=== PATIENT | female | born 1935 | race Caucasian/White ===

== ENCOUNTER → 2016-08-15 | Outpatient (CLI) | payer BC ==
[2016-08-15 13:23] LABS: BLOOD UREA NITROGEN 29 mg/dl (7-18); CALCIUM 9.1 mg/dl (8.5-10.1); CARBON DIOXIDE 25 mmol/L (21-32); CHLORIDE 106 mmol/L (98-107); GLUCOSE 135 mg/dl (70-99); POTASSIUM 4.2 mmol/L (3.5-5.1); SODIUM 140 mmol/L (136-145)
[2016-08-15 13:25] LABS: PHOSPHORUS 3.3 mg/dl (2.5-4.9)
[2016-08-15 13:37] LABS: ESTIMATED AVERAGE GLUCOSE 137 mg/dl; HA1C FLAG Normal (Normal)
== END | disposition home or self-care (01) ==
LOC: C.LABMFLN 10:10
PROVIDERS: ATTEND Family Medicine
DX: E11.9 Type 2 diabetes mellitus without complications (principal)

== ENCOUNTER → 2016-11-17 | Outpatient (CLI) | payer BC ==
[2016-11-17 13:38] LABS: ESTIMATED AVERAGE GLUCOSE 146 mg/dl; HA1C FLAG Normal (Normal)
[2016-11-17 14:03] LABS: BLOOD UREA NITROGEN 23 mg/dl (7-18); BUN/CREATININE RATIO 20.7 (10-20); CARBON DIOXIDE 30 mmol/L (21-32); CHLORIDE 105 mmol/L (98-107); GLUCOSE 147 mg/dl (70-99); POTASSIUM 4.6 mmol/L (3.5-5.1); SODIUM 141 mmol/L (136-145)
[2016-11-17 14:04] LABS: CALCIUM 9.3 mg/dl (8.5-10.1); PHOSPHORUS 3.1 mg/dl (2.5-4.9)
== END | disposition home or self-care (01) ==
LOC: C.LABMFLN 09:04
PROVIDERS: ATTEND Family Medicine
DX: E11.9 Type 2 diabetes mellitus without complications (principal)

== ENCOUNTER → 2017-02-25 | Outpatient (CLI) | payer BC ==
[2017-02-25 17:59] LABS: BLOOD UREA NITROGEN 17 mg/dl (7-18); BUN/CREATININE RATIO 14.2 (10-20); CALCIUM 8.9 mg/dl (8.5-10.1); CARBON DIOXIDE 29 mmol/L (21-32); CHLORIDE 107 mmol/L (98-107); GLUCOSE 113 mg/dl (70-99); PHOSPHORUS 2.6 mg/dl (2.5-4.9); POTASSIUM 4.6 mmol/L (3.5-5.1); SODIUM 140 mmol/L (136-145)
[2017-02-25 18:00] LABS: BASO % 0.4 %; BASO ABS # 0.02 K/uL (0-0.2); COMPLETE YES; HEMATOCRIT 34.2 % (37-47); IG% 0.2 %; LYMPH % 33.5 %; LYMPH ABS # 1.74 K/uL (1.2-3.4); MEAN CELL VOLUME 96.6 fL (80-100); MEAN CORPUSCULAR HEMOGLOBIN 33.1 pg (25-34); MEAN CORPUSCULAR HGB CONC 34.2 g/dl (32-36); MEAN PLATELET VOLUME 8.8 fL (7.4-10.4); NEUT % 50.9 %; PLATELET COUNT 242 K/uL (130-400); RED BLOOD COUNT 3.54 M/uL (4.2-5.4); WHITE BLOOD COUNT 5.19 K/uL (4.8-10.8)
[2017-02-26 06:46] LABS: ESTIMATED AVERAGE GLUCOSE 143 mg/dl; HA1C FLAG Normal (Normal)
== END | disposition home or self-care (01) ==
LOC: C.LABMFLN 14:28
PROVIDERS: ATTEND Family Medicine
DX: E11.9 Type 2 diabetes mellitus without complications (principal)

== ENCOUNTER → 2017-06-05 | Outpatient (CLI) | payer BC ==
[2017-06-05 18:50] LABS: ALT/SGPT 21 U/L (12-78); BLOOD UREA NITROGEN 23 mg/dl (7-18); BUN/CREATININE RATIO 19.5 (10-20); CARBON DIOXIDE 28 mmol/L (21-32); CHLORIDE 106 mmol/L (98-107); CHOLESTEROL 139 mg/dl (0-200); CREATININE 1.16 mg/dl (0.60-1.20); GLUCOSE 139 mg/dl (70-99); POTASSIUM 4.3 mmol/L (3.5-5.1); SODIUM 141 mmol/L (136-145); TRIGLYCERIDES 159 mg/dl (0-150); VERY LOW DENSITY LIPOPROT CALC 32 mg/dl
[2017-06-05 18:53] LABS: ALB/GLOB RATIO 1.1 (0.9-2); ALKALINE PHOSPHATASE 51 U/L (45-117); AST/SGOT 18 U/L (15-37); CHOLESTEROL/HDL RATIO 2.9; HDL CHOLESTEROL 48 mg/dl; LDL CHOLESTEROL CALCULATED 59 mg/dl
[2017-06-05 19:11] LABS: RATIO 55.8 mcg/mg (0-30.0)
[2017-06-06 07:00] LABS: ESTIMATED AVERAGE GLUCOSE 137 mg/dl; HA1C FLAG Normal (Normal)
== END | disposition home or self-care (01) ==
LOC: C.LABMFLN 11:34
PROVIDERS: ATTEND Family Medicine
DX: E78.5 Hyperlipidemia, unspecified (principal); E11.9 Type 2 diabetes mellitus without complications

== ENCOUNTER → 2017-09-16 | Outpatient (CLI) | payer BC ==
[2017-09-16 12:57] LABS: ALBUMIN 3.9 gm/dl (3.4-5.0); BLOOD UREA NITROGEN 22 mg/dl (7-18); CALCIUM 8.6 mg/dl (8.5-10.1); CARBON DIOXIDE 29 mmol/L (21-32); CREATININE 1.28 mg/dl (0.60-1.20); GLUCOSE 139 mg/dl (70-99); POTASSIUM 4.6 mmol/L (3.5-5.1); SODIUM 139 mmol/L (136-145)
[2017-09-16 13:07] LABS: HEMOGLOBIN A1C 6.5 % (4.5-5.6)
== END | disposition home or self-care (01) ==
LOC: C.LABMFLN 10:24
PROVIDERS: ATTEND Family Medicine
DX: E11.9 Type 2 diabetes mellitus without complications (principal)

== ENCOUNTER → 2017-11-27 | Outpatient (CLI) | payer BC ==
[2017-11-27 17:58] LABS: HEMATOCRIT 36.1 % (37-47); HEMOGLOBIN 11.8 g/dL (12.0-16.0); MEAN CELL VOLUME 99.2 fL (80-100); MEAN CORPUSCULAR HEMOGLOBIN 32.4 pg (25-34); MEAN CORPUSCULAR HGB CONC 32.7 g/dl (32-36); MEAN PLATELET VOLUME 8.8 fL (7.4-10.4); PLATELET COUNT 238 K/uL (130-400); RED CELL DISTRIBUTION WIDTH CV 12.5 % (11.5-14.5); RED CELL DISTRIBUTION WIDTH SD 45.4 fL (36.4-46.3)
[2017-11-27 18:11] LABS: ALBUMIN 3.7 gm/dl (3.4-5.0); BLOOD UREA NITROGEN 34 mg/dl (7-18); CALCIUM 9.2 mg/dl (8.5-10.1); CARBON DIOXIDE 31 mmol/L (21-32); CREATININE 1.45 mg/dl (0.60-1.20); GLUCOSE 157 mg/dl (70-99); PHOSPHORUS 3.4 mg/dl (2.5-4.9); POTASSIUM 4.8 mmol/L (3.5-5.1); SODIUM 138 mmol/L (136-145)
== END | disposition home or self-care (01) ==
LOC: C.LABMFLN 11:38
PROVIDERS: ATTEND Internal Medicine Nephrology
DX: N18.3 Chronic kidney disease, stage 3 (moderate) (principal)

== ENCOUNTER → 2018-02-15 | Outpatient (CLI) | payer BC ==
[2018-02-15 18:06] LABS: BASO % 0.4 %; BASO ABS # 0.02 K/uL (0-0.2); EOS % 3.2 %; EOS ABS # 0.15 K/uL (0-0.5); HEMOGLOBIN 11.6 g/dL (12.0-16.0); IG# 0.01 K/uL (0.00-0.02); LYMPH % 33.1 %; LYMPH ABS # 1.53 K/uL (1.2-3.4); MEAN CELL VOLUME 98.6 fL (80-100); MEAN CORPUSCULAR HEMOGLOBIN 32.7 pg (25-34); MEAN CORPUSCULAR HGB CONC 33.1 g/dl (32-36); MONO % 11.3 %; MONO ABS # 0.52 K/uL (0.11-0.59); NEUT % 51.8 %; NEUT ABS # 2.39 K/uL (1.4-6.5); PLATELET COUNT 248 K/uL (130-400); WHITE BLOOD COUNT 4.62 K/uL (4.8-10.8)
[2018-02-15 18:33] LABS: ALBUMIN 3.7 gm/dl (3.4-5.0); ALKALINE PHOSPHATASE 50 U/L (45-117); ALT/SGPT 27 U/L (12-78); AST/SGOT 22 U/L (15-37); BLOOD UREA NITROGEN 30 mg/dl (7-18); CALCIUM 8.8 mg/dl (8.5-10.1); CARBON DIOXIDE 30 mmol/L (21-32); CREATININE 1.24 mg/dl (0.60-1.20); GLUCOSE 95 mg/dl (70-99); POTASSIUM 4.1 mmol/L (3.5-5.1); SODIUM 140 mmol/L (136-145); TOTAL PROTEIN 7.5 gm/dl (6.4-8.2)
== END | disposition home or self-care (01) ==
LOC: C.LABMFLN 16:17
PROVIDERS: ATTEND Family Medicine
DX: I12.9 Hypertensive chronic kidney disease with stage 1 through stage 4 chronic kidney disease, or unspecified chronic kidney disease (principal); E78.5 Hyperlipidemia, unspecified; N18.3 Chronic kidney disease, stage 3 (moderate); R55 Syncope and collapse

== ENCOUNTER → 2018-03-10 | Day surgery (SDC) | payer BC ==
[2018-03-04 16:26] VITALS: Ht 154.9 cm; Wt 73.6 kg
[~2018-03-10] VITALS: Ht 154.9 cm; Wt 73.6 kg
[~2018-03-10] MED LIST: 500ML BSS 0.3ML EPI 1:1000PF IRRIG ONE; ACETAMINOPHEN 325 MG TAB PO PRN; ACT/15 PO; AMVISC PLUS 0.8ML SYRINGE INT OCU ONE; ATROPINE SULFATE 0.1 MG/ML 5ML SYR IV PRN; BETAXOLOL HCL 0.25% OP SUSP PER DROP CHARGE OPL SCH; BRIMONIDINE TART 0.2% OP SOLN PER DROP CHARGE ONE; BSS FLUSH ONE; CITA20TA4 PO; CLOP1TAB15 PO; CYAN100020 PO; CYCLOPENTOLATE HCL 1% OP SOLN PER DROP CHARGE OPL SCH; ENDOCOAT 0.85ML SYRINGE INT OCU ONE; EpHEDrine SULFATE INJ 50 MG/ML AMP IV PRN; EpINEphrine INJ 1MG/ML AMP 1 MG/ML AMP ONE; FENTANYL CITRATE INJ 50 MCG/1 ML 2 ML VIAL IV PRN; LACTATED RINGER'S 1000ML 500 ML IV SCH; LIDOCAINE 4% OP SOLN DROP CHARGE ONE; LIDOCAINE 4% OP SOLN DROP CHARGE OPL SCH; LIDOCAINE HCL 1% MPF 2 ML VIAL ONE; LISI40TA PO; METO100T44 PO; MIDAZOLAM HCL 1 MG/ML 2ML VIAL ONE; MIX: 4ML BSS 1ML EPI 1:1000 PF INSTIL ONE; MOXIFLOXACIN OPH SOLN PER DROP CHARGE ONE; MULT-188 PO; MULT-94 PO; ONDANSETRON INJ 2 MG/ML 2 ML VIAL IV PRN; PHENYLEPHRINE HCL 2.5% OP SOLN PER DROP CHARGE OPL SCH; POVIDONE-IODINE OP SOLN 30 ML BTL ONE; PROPARACAINE 0.5% OP SOLN PER DROP CHARGE OPL SCH; PYRI100T4 PO; SIMV40TA2 PO; TOBRAMYCIN/DEXAMETHASONE OPH OINT PER APPLN CHARGE ONE; TROPICAMIDE 1% OP SOLN PER DROP CHARGE OPL SCH
--- NOTE | 2018-03-10 07:16 | History & Physical Bridge - [place] ---
H&P Re-Evaluation Bridge Note: I have examined the patient, reviewed the History & Physical and in the interval since the performance of the History & Physical I have noted the following changes of clinical significance: No changes noted
[2018-03-10] MEDS: MOXIFLOXACIN OPH SOLN PER DROP CHARGE OPL SCH ×2 (09:32→09:46)
--- NOTE | 2018-03-10 09:48 | [facility] Operative Report ---
Operative Report Date of Service Mar 10, 2018. Operative Report 1. PREOPERATIVE DIAGNOSIS: Senile nuclear cataract, left eye. 2. POSTOPERATIVE DIAGNOSIS: Senile nuclear cataract, left eye. 3. PROCEDURE: Phacoemulsification of left cataract with posterior chamber lens implant, type B[employer]ch [employer], model MX60E, power +21.5 diopters. ANESTHESIA: Local standby. SURGEON: Dr. Dubon. COMPLICATIONS: None. OPERATING TIME: 10 minutes. 4. OPERATION AND FINDINGS: DESCRIPTION OF PROCEDURE: The left pupil was dilated. The anesthetic was administered using a topical technique. The left eye was prepped and draped. A speculum was placed. A clear corneal incision was formed. The chamber was filled with Amvisc Plus and Endocoat. Epinephrine solution was used. A paracentesis was placed. A capsulorrhexis was performed. The nucleus was hydrodissected. The lens was removed with phacoemulsification. Time was 2.30 seconds. The aspiration unit was used to remove the cortex. The capsule was filled with Amvisc Plus. The lens implant was folded and placed into the capsule. The incision was hydrated. The Amvisc was aspirated. The wound was secure. The chamber was deep. The pupil was round. Brimonidine, TobraDex ointment and Vigamox solution were placed. The speculum was removed. The patient was returned to the Recovery Room in stable condition. I attest to the content of the Intraoperative Record and any orders documented therein. Any exceptions are noted below. The scribe's documentation has been prepared in my presence, under my direction and personally reviewed by me in its entirety. I confirm that the note above accurately reflects all work, treatment, procedures, and medical decision making performed by me. I personally scribed for Bhavesh Dubon M.D. ([email or web address]) on 03/10/18 at 09:48. Electronically submitted by Holli Serrano ([email or web address]).
[2018-03-10 09:51] VITALS: TEMP 36.9
--- NOTE | 2018-03-10 09:51 | Discharge Instructions-SurgCtr ---
Discharge Instructions Date of Service Mar 10, 2018. Visit Reason for Visit: Cataract Left Eye Discharge Discharge Diagnosis / Problem: lens implant left eye Discharge Goals Goal(s): Improve function Activity Recommendations Activity Limitations: resume your previous activity Lifting Limitations: no more than 10 pounds Exercise/Sports Limitations: gradually increase as tolerated May Resume Sexual Activity: when tolerated Shower/Bathe: tomorrow Driving or Machine Use: resume 1 day after discharge Anesthesia . Post Anesthesia Instructions: If you have had General Anesthesia or IV Sedation: * Do not drive today. * Resume driving when surgeon permits. * Do not make important decisions or sign legal documents today. * Call surgeon for: 1. Temperature elevations greater than 101 degrees F. 2. Uncontrollable pain. 3. Excessive bleeding. 4. Persistent nausea and vomiting. 5. Medication intolerance (nausea, vomiting or rash). * For nausea and vomiting use only clear liquids such as: tea, soda, bouillon until nausea subsides, then gradually increase diet as tolerated. * If you have any concerns or questions, call your surgeon's office. If physician is unavailable and it is an emergency, call 911 or go to the nearest emergency room. . Instructions / Follow-Up Instructions / Follow-Up ACTIVITY RECOMMENDATIONS: * Light activities. * Mild irritation and blurred vision are common for the first few days. * You may walk outside, read, watch television. * Redness around the white part of the eye is common. MEDICATIONS: Resume previous medications unless instructed otherwise by your surgeon. Start all eye drops at 1 pm today: * Eye drops (today and tomorrow): Prednisone - one drop in operative eye every 3 hours while awake Ofloxacin - one drop in operative eye every 3 hours while awake Ilevro - one drop in operative eye once daily SPECIAL CARE INSTRUCTIONS: * Tape plastic shield over eye to sleep at night. Call your doctor at with any concerns or problems. FOLLOW UP VISIT: Follow-up with Dr Dubon at [facility] office as scheduled. Diet Recommendations Home Diet: no limitations Procedures Procedures Performed: Left Cataract Phacoemulsification With Intraocular Lens Implant Pending Studies Studies pending at discharge: no Medical Emergencies . Who to Call and When: Medical Emergencies: If at any time you feel your situation is an emergency, please call 911 immediately. . Non-Emergent Contact Non-Emergency issues call your: Foreign Broadcast Specialist Call Non-Emergent contact if: your pain is not controlled [phone] . . "Provider Documentation" section prepared by Bhavesh Dubon. .
--- NOTE | 2018-03-10 10:03 | Anesthesia Progress Nt - [facility] ---
Anesthesia Post Op Note Date & Time Mar 10, 2018 at 10:02 Vital Signs Pain Intensity: 0 Vital Signs Past 12 Hours Date Time Temp Pulse Resp B/P (MAP) Pulse Ox O2 Delivery O2 Flow Rate FiO2 03/10/18 09:51 36.9 64 20 170/71 (104) 99 Room Air 03/10/18 08:55 36.5 62 16 170/85 (113) 98 Room Air Notes Mental Status: alert / awake / arousable, participated in evaluation Pt Amnestic to Procedure: Yes Nausea / Vomiting: adequately controlled Pain: adequately controlled Airway Patency, RR, SpO2: stable & adequate BP & HR: stable & adequate Hydration State: stable & adequate Anesthetic Complications: no major complications apparent
[2018-03-10 10:20] VITALS: BP 176/80; PULSE 63; O2SAT 97
== END | disposition home or self-care (01) ==
LOC: X.SURG 08:33
PROVIDERS: ATTEND Specialist
DX: H25.12 Age-related nuclear cataract, left eye (principal); I10 Essential (primary) hypertension; E78.5 Hyperlipidemia, unspecified; E11.9 Type 2 diabetes mellitus without complications; M35.00 Sjogren syndrome, unspecified; Z86.73 Personal history of transient ischemic attack (TIA), and cerebral infarction without residual deficits; Z88.0 Allergy status to penicillin; Z88.2 Allergy status to sulfonamides

== ENCOUNTER 2019-08-09 15:19 | Observation (INO) ==
[2019-08-09] MEDS ORDERED: ACETAMINOPHEN 325 MG TAB PO PRN (17:15)
[2019-08-09] MEDS ORDERED: ONDANSETRON INJ 2 MG/ML 2 ML VIAL IV PRN (17:15)
[2019-08-09] MEDS ORDERED: CARBOHYDRATES FOR HYPOGLYCEMIA PO PRN (17:15)
[2019-08-09] MEDS ORDERED: DEXTROSE 50% 50 ML SYRINGE IV PRN (17:15)
[2019-08-09] MEDS ORDERED: GLUCOSE 10 TABS/TUBE PO PRN (17:15)
[2019-08-09] MEDS ORDERED: GLUCOSE 40% GEL 15 GM TUBE PO PRN (17:15)
[2019-08-09] MEDS ORDERED: GLUCAGON FOR INJ 1 MG VIAL SQ PRN (17:15)
--- NOTE | 2019-08-09 17:30 | History & Physical Report ---
Date of Service August 09, 2019 Assessment & Plan (1) Dysphasia: -Admit to [facility] - video swallow eval and ENT consult recommended for possible laryngeal nerve palsy, but as neither of these were available at OSH, the patient presents here for this. The patient notes she has been using thickeners and is able to swallow this consistency and solid foods without any difficulty, she denies sensation of food bolus being stuck, but feels that a thin liquid does not move down through her esophagus when it gets to the base of her neck. She has not tried to eat dry food such as toast or meats since this occurred. She denies any other acute complaints. -Speech evaluation ordered, order ENT consultation after results - Allow diet, pt does not have to be NPO for video swallow. Thickened liquids, nectar thick - Aspiration precautions (2) Benign essential hypertension: -Monitor BP -Allow antihypertensives including amlodipine, lisinopril, metoprolol pending BP well n.p.o. due to dysphasia-unknown if patient taking meds okay at OSH? -can use IV hydralazine prn (3) Hyperlipidemia: -Continue statin therapy (4) Diabetes mellitus, type 2: -ISS with Accu-Cheks AC at bedtime -Holding pioglitazone -Last A1c = 7.3 on 07/04/2019 -Patient seeing retinal specialist and getting injections for macular degeneration (5) Sjogrens syndrome: - Stable (6) Anemia: -Macrocytic -Continue B12 1000 mcg daily (7) Depression: -Continue citalopram 20 mg HS (8) CKD (chronic kidney disease), stage III: -Check PRP now to assess renal function (9) Hyperparathyroidism: -Stable (10) History of TIA (transient ischemic attack): - occurred over 20 years ago, continues on plavix daily for this - CVA event r/o at OSH (11) DVT prophylaxis: -Teds CODE STATUS: DNR Disposition: Patient likely to remain in the hospital x1 to 2 days for fluoroscopic video swallow History of Present Illness Primary Care Provider: Otilia Sweeney MD This is an 84-year-old female with past medical history of HTN, HLD, DM type II, macrocytic anemia, Sjrogens syndrome, hyperparathyroidism, depression, who was a direct transfer from [facility] for acute dysphasia, requiring video swallow evaluation as the other facility did not have ability to conduct this study. Issues with swallowing started on 08/06/19 wear she was no longer able to swallow thin liquids without difficulty. She went to OSH ER for possible CVA, as she has had 2 mini strokes in the past, however this occurred over 20 years ago now, but was ruled out to be due to CVA. An MRI was conducted and did identify a small left bradford lesion. 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 A video swallow eval and ENT consulted were recommended for possible laryngeal nerve palsy, but as neither of these were available at OSH, the patient presents here for this. The patient notes she has been using thickeners and is able to swallow this consistency and solid foods without any difficulty, she denies sensation of food bolus being stuck, but feels that a thin liquid does not move down through her esophagus when it gets to the base of her neck. She has not tried to eat dry food such as toast or meats since this occurred. She denies any other acute complaints. Will order Fl video swallow, await results for ENT consultation. Allergies Allergy/AdvReac Type Severity Reaction Status Date / Time aspirin Allergy Severe RASH, Verified 07/04/19 14:47 DIFFICULTY BREATHING erythromycin base Allergy Severe RASH, Verified 07/04/19 14:47 DIFFICULTY BREATHING Penicillins Allergy Severe RASH, Verified 07/04/19 14:47 DIFFICULTY BREATHING Sulfa (Sulfonamide Allergy Severe RASH, Verified 07/04/19 14:47 Antibiotics) DIFFICULTY BREATHING Home Medications Home Medications Medication Instructions Recorded Confirmed Type cyanocobalamin (vitamin B-12) 1,000 mcg PO QAM 03/24/18 08/09/19 History multivitamin 1 tab PO QAM 03/24/18 08/09/19 History cetirizine 10 mg capsule 10 mg PO HS #30 cap 02/09/19 08/09/19 Rx fluticasone furoate 27.5 See Rx Instructions INTNAS DAILY 02/09/19 08/09/19 Rx mcg/actuation nasal #9.1 ml spray,suspension vitamins A,C,C-[id number]-bgqtev 14,320 1 cap PO BID #60 cap 02/09/19 08/09/19 Rx unit-226 mg-200 unit capsule blood sugar diagnostic #30 ea 02/17/19 08/09/19 Rx lancets 33 gauge #30 ea 02/17/19 08/09/19 Rx oxyquinoline 0.025 %-sodium lauryl 1 ea VAGINAL UD gm 02/23/19 08/09/19 History sulfate 0.01 % vaginal gel amlodipine 2.5 mg tablet 2.5 mg PO DAILY #30 tab 02/24/19 08/09/19 Rx citalopram 20 mg tablet 20 mg PO HS #90 tab 03/25/19 08/09/19 Rx clopidogrel 75 mg tablet 75 mg PO QAM #90 tab 03/25/19 08/09/19 Rx lisinopril 40 mg tablet 40 mg PO HS #90 tab 03/25/19 08/09/19 Rx metoprolol succinate 100 mg 100 mg PO QAM #90 tab 03/25/19 08/09/19 Rx tablet,extended release 24 hr pioglitazone 15 mg tablet 15 mg PO QAM #90 tab 03/25/19 08/09/19 Rx atorvastatin 20 mg PO QPM 08/09/19 08/09/19 History Past Med/Surg History Social History Preferred Language: Spanish Communication Ability: Effective Visual Impairment: Limited Hearing Ability: Normal Fur Buyer Required: No Beliefs That Will Affect Care: None marital status: / Current Living Situation: Alone current occupational status: retired Other Information That Helps Us Care for You: No Feels Safe at Home: Yes Safety Concerns: Feels Safe At This Time Smoking Status: Never smoker Tobacco Type: cigarettes ; Do You Dip or Chew Tobacco: No ; Second Hand Exposure: Yes ( smoked 2-3 packs a day) ; Tobacco Cessation Education Requested by Patient: No Hx Alcohol Use: No Hx Substance Use: No Childhood Exposure to Second-Hand Smoke: Yes caffeine: Yes (tea occasionally) during the past year weight has: remained stable Dental Care, Regularly: Yes Physical Activity Frequency: Daily Physical Activity Frequency Comment: walks in house/stationary bike Seatbelt Use: always Sunscreen Use: No Do you think of yourself as: straight/heterosexual Review of Systems Review of Systems: Constitutional: No fever, sweats or chills Eyes: No diplopia, no worsening or blurred vision ENT: normal hearing, + issues swallowing as per HPI. Respiratory: No cough, sputum, dyspnea at rest or on exertion Cardiovascular: No chest pain, tightness or palpitations Abdomen: No pain, nausea, vomiting, diarrhea or constipation Musculoskeletal: No joint pain, calf pain, swelling Neurologic: No weakness, numbness/tingling, or balance problems Psychiatric: No anxiety or depression Skin: No rash or itch Physical Exam Physical Exam: General: awake, alert, no apparent distress, +overweight Head: Normocephalic, atraumatic ENT: PERRL, EOMI, no pharyngeal exudate, mucous membranes moist Chest: Clear to auscultation, on room air, no adventitious breath sounds Cardiac: Regular rate and rhythm, no murmur, no JVD, normal peripheral pulses, good capillary refill Abdominal: NABS x 4 quadrants, soft, nondistended, nontender to palpation, no rebound, guarding or tenderness Extremities: Normal inspection, no peripheral edema or erythema, calfs nontender to palpation Psych: Normal mood and affect Neuro: AAO x 3, strength intact bilaterally and related 5/5, no motor deficits, speech is clear, no peripheral sensory deficits Code Status & VTE Plan Code Status DNR - discussed with the pt and daughter at bedside. Supervising Physician Co-Signing Physician Notes I personally saw and examined the patient. I verified all castellon points and agree with FRANCESCA Stephens with the following exceptions and/or additions: Patient with very acute onset dysphagia. No dysphasia as mentioned above in PA note. Started 3 days prior. Direct admission from [facility] as no ability to perform video swallow at that facility at present. Brain MRI negative for CVA - images were apparently reviewed with Lizbeth. She apparently also had MRA although I have not seen those results. O/E CN 2-> 12 intact, uvula central, no pharyngeal erythema/thrush. no focal deficit extremity deficit. Speech examination normal. No dysphonia, dysarthria or dysphasia. No lymphadenopathy cervical/supraclavicular on exam, no thyromegaly, Lungs CTAB, Abdo SNT, BS normal. A&P Acute onset dysphagia - video swallow ordered, SLT, minced and moist diet as she was on this at [place]. Depending on results will consult ENT. No previously smoking history but significant second hand smoke exposure from her late . No supraclavicular lymphadenopathy on exam. PG Care Time/CCT Total # of Minutes Spent Total Time Spent with Patient: Total time spent is greater than 50% in coordination of care (as documented) at patient's floor/unit and/or counseling patient:
[2019-08-09 18:57] LABS: Hemoglobin 12.2 g/dL (12.0-16.0); Immature Granulocytes # (auto) 0.04 K/uL (0.00-0.02); Immature Granulocytes % (auto) 0.4 %; Lymphocytes # (auto) 0.77 K/uL (1.2-3.4); Mean Corpuscular Hemoglobin 33.3 pg (25-34); Mean Corpuscular Volume 98.4 fL (80-100); Monocytes # (auto) 0.36 K/uL (0.11-0.59); Monocytes % (auto) 3.7 %; Neutrophils # (auto) 8.44 K/uL (1.4-6.5); Neutrophils % (auto) 87.9 %; Platelet Count 281 K/uL (130-400); RDW Coefficient of Variation 12.8 % (11.5-14.5); RDW Standard Deviation 45.9 fL (36.4-46.3); Red Blood Count 3.66 M/uL (4.2-5.4); White Blood Count 9.61 K/uL (4.8-10.8)
[2019-08-09 18:58] LABS: Mean Corpuscular Hgb Conc 33.9 g/dL (32-36)
[2019-08-09 20:15] LABS: Creatinine Clr Calc Pharmacy 28.8 ml/min
[2019-08-09 20:17] LABS: BUN Creatinine Ratio 39.2 (10-20); Calcium 9.2 mg/dl (8.5-10.1); Est GFR (African American) 40.7; Est GFR (Non-African American) 35.1; Potassium 3.8 mmol/L (3.5-5.1)
[2019-08-09] MEDS ORDERED: CETIRIZINE HCL 10 MG TABLET PO SCH (21:00)
[2019-08-09] MEDS ORDERED: ATORVASTATIN 20 MG TAB PO SCH (21:00)
[2019-08-09] MEDS ORDERED: CITALOPRAM 20 MG TAB PO SCH (21:00)
[2019-08-09] MEDS ORDERED: lisinopriL 40 MG TAB PO SCH (21:00)
[2019-08-09] MEDS ORDERED: INSULIN ASPART 100 UNITS/ML 3 ML PEN SC SCH (21:00)
[2019-08-09] MEDS: CEROVITE ADV FORMULA TAB PO SCH (21:34)
[2019-08-10] MEDS ORDERED: Nursing to Pharmacy Communication ONE (04:17)
[2019-08-10] MEDS ORDERED: INSULIN ASPART 100 UNITS/ML 3 ML PEN SC SCH ×2 (06:00→11:30)
[2019-08-10 06:08] LABS: Hematocrit (blood only) 34.8 % (37-47); Hemoglobin 11.7 g/dL (12.0-16.0); Mean Corpuscular Hemoglobin 33.1 pg (25-34); Mean Corpuscular Hgb Conc 33.6 g/dL (32-36); Mean Corpuscular Volume 98.6 fL (80-100); Mean Platelet Volume 9.1 fL (7.4-10.4); Platelet Count 253 K/uL (130-400); RDW Coefficient of Variation 12.8 % (11.5-14.5); RDW Standard Deviation 45.6 fL (36.4-46.3); Red Blood Count 3.53 M/uL (4.2-5.4); White Blood Count 7.35 K/uL (4.8-10.8)
[2019-08-10 06:39] LABS: Albumin Level 3.1 gm/dl (3.4-5.0); BUN Creatinine Ratio 37.8 (10-20); Calcium 8.9 mg/dl (8.5-10.1); Creatinine Clr Calc Pharmacy 34.9 ml/min; Est GFR (African American) 50.2; Est GFR (Non-African American) 43.4; Potassium 3.6 mmol/L (3.5-5.1)
[2019-08-10 06:41] LABS: Albumin Globulin Ratio 0.9 (0.9-2); Bilirubin,Total 0.5 mg/dl (0.2-1); Globulin 3.6 gm/dl (2.5-4.0); Total Protein 6.7 gm/dl (6.4-8.2)
[2019-08-10] MEDS ORDERED: METOPROLOL SUCC 50MG EXT REL TAB PO SCH (09:00)
[2019-08-10] MEDS ORDERED: CLOPIDOGREL BISULFATE 75 MG TAB PO SCH (09:00)
[2019-08-10] MEDS ORDERED: CYANOCOBALAMIN 500 MCG TABLET (VITAMIN B-12) PO SCH (09:00)
[2019-08-10] MEDS ORDERED: MULTIVITAMIN TAB PO SCH (09:00)
[2019-08-10] MEDS ORDERED: FLUTICASONE PROPIONATE NA SPR 16 GM BTL SCH (09:00)
[2019-08-10] MEDS ORDERED: AMLODIPINE BESYLATE 5 MG TAB PO SCH (09:00)
[2019-08-10] MEDS: CEROVITE ADV FORMULA TAB PO SCH (09:19)
--- NOTE | 2019-08-10 09:41 | Fluoroscopy Report ---
FL video swallow CLINICAL HISTORY: 84 years-old Female presenting with acute dysphagia, hoarseness. TECHNIQUE: Video fluoroscopic evaluation of swallowing was performed in the AP and lateral projection s in conjunction with speech pathology. The patient was administered various textures, including nect ar-thick and thin liquid barium, a barium coated wafer, and barium pudding. COMPARISON: None. FINDINGS: Limited evaluation of the esophagus suggests mild esophageal dysmotility. A column of contrast was no jose in the distal esophagus.. Normal oral transit, including normal tongue-soft palate seal. Normal soft palate-superior constricto r muscle seal without evidence of nasopharyngeal regurgitation. Normal oral transport/propulsion of t he food bolus. Normal hyoid elevation and epiglottic deflection. No evidence of a significant pharyng eal bolus residual. None of the administered textures resulted in laryngeal penetration within the laryngeal vestibule. O nly a single episode of aspiration with thin liquids was observed. The remaining swallows with thin l iquids as well as all of the remaining textures were well tolerated without evidence of aspiration. Fluoroscopy dosage (mGy): Not available. Fluoroscopy time: 2.2 minutes. Number or time of high level fluoroscopy (HLF), digital spot, or digital subtraction images: 0. IMPRESSION: 1. Only a single episode of aspiration of thin liquids identified. 2. 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 3. Please see the speech pathologist report for detailed findings and recommendations. ACT 112: Negative or not required by law. Electronically signed by: Titi Branham M.D. 08/10/2019 9:40 AM
[2019-08-10 09:53] VITALS: BP 163/89; PULSE 78; TEMP 97.9; O2SAT 92
--- NOTE | 2019-08-10 17:59 | Discharge Summary ---
Date of Service August 10, 2019 Admission HPI Per Admitting Provider This is an 84-year-old female with past medical history of HTN, HLD, DM type II, macrocytic anemia, Sjrogens syndrome, hyperparathyroidism, depression, who was a direct transfer from [facility] for acute dysphasia, requiring video swallow evaluation as the other facility did not have ability to conduct this study. Issues with swallowing started on 08/06/19 wear she was no longer able to swallow thin liquids without difficulty. She went to OSH ER for possible CVA, as she has had 2 mini strokes in the past, however this occurred over 20 years ago now, but was ruled out to be due to CVA. An MRI was conducted and did identify a small left bradford lesion. 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 A video swallow eval and ENT consulted were recommended for possible laryngeal nerve palsy, but as neither of these were available at OSH, the patient presents here for this. The patient notes she has been using thickeners and is able to swallow this consistency and solid foods without any difficulty, she denies sensation of food bolus being stuck, but feels that a thin liquid does not move down through her esophagus when it gets to the base of her neck. She has not tried to eat dry food such as toast or meats since this occurred. She denies any other acute complaints. Will order Fl video swallow, await results for ENT consultation. Admission Exam Per Admitting Provider General: awake, alert, no apparent distress, +overweight Head: Normocephalic, atraumatic ENT: PERRL, EOMI, no pharyngeal exudate, mucous membranes moist Chest: Clear to auscultation, on room air, no adventitious breath sounds Cardiac: Regular rate and rhythm, no murmur, no JVD, normal peripheral pulses, good capillary refill Abdominal: NABS x 4 quadrants, soft, nondistended, nontender to palpation, no rebound, guarding or tenderness Extremities: Normal inspection, no peripheral edema or erythema, calfs nontender to palpation Psych: Normal mood and affect Neuro: AAO x 3, strength intact bilaterally and related 5/5, no motor deficits, speech is clear, no peripheral sensory deficits Principal Diagnosis Dysphagia Discharge Exam General: Resting comfortably HEENT: NC/AT; PERRLA with EOMI; [place] conjunctiva, MMM. No erythema of posterior pharynx Neck: Supple and nontender Cardiac: RRR Lungs: CTA bilaterally; No rhonchi, wheezing, or rales Abdomen: Bowel normoactive X 4; Nontender to palpation Extremities: Warm. No edema present Neuro: No focal weakness Skin: No rash Discharge Data Allergies Allergy/AdvReac Type Severity Reaction Status Date / Time aspirin Allergy Severe RASH, Verified 08/15/19 10:23 DIFFICULTY BREATHING erythromycin base Allergy Severe RASH, Verified 08/15/19 10:23 DIFFICULTY BREATHING Penicillins Allergy Severe RASH, Verified 08/15/19 10:23 DIFFICULTY BREATHING Sulfa (Sulfonamide Allergy Severe RASH, Verified 08/15/19 10:23 Antibiotics) DIFFICULTY BREATHING Consultations 08/09/19 17:16 Consult Case Management - Discharge Planning Routine Ordered Studies 08/10/19 08:45 FL video swallow Routine Hospital Course (1) Dysphagia: Transferred to [facility] for video swallow study and possible ENT consult due to concern for dysphagia. Previous stroke work up completed at outside hospital -- was negative. Video swallow completed, had mild episode of aspiration but was otherwise negative. Approved for regular diet per speech therapy. Will need to follow up with ENT as outpatient. (2) Benign essential hypertension: Continued home BP meds. (3) Hyperlipidemia: Continued statin therapy. (4) Diabetes mellitus, type 2: Last A1C = 7.3 on 07/04/2019 Insulin as inpatient. (5) Sjogrens syndrome: Stable. (6) Anemia: Continued B12 1000 mcg daily. (7) Depression: Continued citalopram 20 mg HS. (8) CKD (chronic kidney disease), stage III: Renal function stable. (9) Hyperparathyroidism: Stable. (10) History of TIA (transient ischemic attack): Occurred over 20 years ago, continues on Plavix daily for this. Ruled out CVA as outside hospital. Total Time Total Time Spent Total Time Spent (In Minutes): >30 minutes Total Time Includes: Examination of the Patient, Discharge Planning, Medication Reconciliation, Communication With Other Providers and Other Discharge Plan Discharge Items Patient Disposition: Home - Self-Care Reason For Visit: ACUTE DYSPHAGIA Discharge Diagnosis: Acute Dysphagia Condition on Discharge: Fair Goals: You have been hospitalized for an acute medical problem. During your stay at [facility], we have made an effort to correct the problem that brought you to the hospital while keeping you as comfortable as possible. Medications were used to bring your condition under control and your discharge instructions will include directions for any medications you should take after leaving the hospital. Please make sure you see your Primary Care Provider as pa rt of your follow up plan. Activity: As commented below Exercise/Sports: Gradually increase as tolerated Non-emergency contact: Primary Care Provider Call non-emergency contact if: you have any medication questions, your symptoms worsen and you have a fever Follow-up/Referrals: Otilia Sweeney MD [Primary Care Provider] - 08/15/19 11:20 am (Please, follow up with Dr. Sweeney on ThursdayAugust 15 at 11:30 am. *If you need to change this appointment, call the office at [phone].) Armando Mccann MD, [facility] [Physician] - (Please, follow up at [facility] ENT Office with Dr. Mccann, regarding swallowing difficulty. *A nurse from his office will call you with the appointment information. The office is located at [facility] in [facility]). If you have any questions, call the office at [phone].) Diet: Carb Consistent or DM2 Diet Texture: Dental soft (bite-sized) Addtl Attending Provider Instructions: 1. Dysphagia * Please advance diet as tolerated at home -- you were approved for a regular diet. * You will need to follow up with ENT in the near future -- this appt will be scheduled by our nurse navigator. Pending Studies at Discharge: No Stand-Alone Forms: My [facility] Medications and DC Order Prescriptions: Continued citalopram 20 mg tablet 20 mg PO HS Qty: 90 RF: 3 clopidogrel [Plavix] 75 mg tablet 75 mg PO QAM Qty: 90 RF: 3 metoprolol succinate 100 mg tablet extended release 24 hr 100 mg PO QAM Qty: 90 RF: 3 lisinopril 40 mg tablet 40 mg PO HS Qty: 90 RF: 3 pioglitazone [Actos] 15 mg tablet 15 mg PO QAM Qty: 90 RF: 3 (DME) OneTouch Ultra Blue Test Strip strip See Dose Instructions .ROUTE .MEDSUPPLY Qty: 30 RF: 5 (DME) lancets [OneTouch Delica Lancets] 33 gauge misc See Dose Instructions .ROUTE .MEDSUPPLY Qty: 30 RF: 5 oxyquinoline-sod.lauryl sulfat 0.025-0.01 % gel 1 ea vaginal UD RF: 0 PreserVision AREDS [id number] flxk-ur-jnza capsule 1 cap PO BID Qty: 60 RF: 2 fluticasone furoate 27.5 mcg/actuation spray,suspension See Rx Instructions INTNAS DAILY Qty: 9.1 RF: 2 cetirizine 10 mg capsule 10 mg PO HS Qty: 30 RF: 2 multivitamin Tablet 1 tab PO QAM RF: 0 cyanocobalamin (vitamin B-12) 1,000 mcg Tablet 1,000 mcg PO QAM RF: 0 No Action atorvastatin 20 mg tablet 20 mg PO QPM RF: 0 amlodipine 2.5 mg tablet 2.5 mg PO DAILY Qty: 90 RF: 3 omeprazole 20 mg capsule,delayed release(DR/EC) 40 mg PO DAILY Qty: 60 RF: 2 Discharge Orders: Discharge Order (Routine); Ordered 08/10/19 Ordered By: Holli Medel Admission Data Admit Date/Time: 08/09/19 17:15 Attending Provider: Alejandro Broussard Admit Provider: Alejandro Richmond Primary Care Provider: Otilia Sweeney Other Interventions: Discharge Summary Assessment (RN) Last Done: 08/10/19 15:38 DC Date/Time DO NOT enter until pt leaves facility: 08/10/19 16:11 Supervising Physician Co-Signing Physician Notes Attending Attestation and Discharge Note: Pt seen/examined, chart reviewed, care plan d/w PA Holli Medel. I agree w/ the [place] components of her documentation. 84yo female - dx with tracheobronchitis at [facility] but ultimately transferred here for consideration of video swallow and ENT consultation. By history patient had developed dysphagia in the context of the tracheobronchitis. The latter caused wheezing, cough, congestion, and dyspnea. ER records from [place] showed she was in quite distress when she arrived there requiring breathing treatments, etc. 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 Neurology did not feel her swallowing difficulty was from the pontine lesion. Speech therapy at [facility] was concerned about vocal cord paralysis and hence the transfer to [facility]. While at [facility] she had consultation w/ speech who performed video swallow. According to speech both vocal cords are moving. The video swallow was largely normal except for 1 isolated episode of aspiration of thins; esophageal dysmotility was also seen. Outpatient ENT eval will be set up for consideration of direct laryngoscopy. At time of d/c from [facility] I suspect that the patient's acute dysphagia is likely from her laryngotracheobronchitis. The patient had significant hoarse voice/laryngitis while hospitalized here consistent with her illness. Prior to the illness her voice had been normal. Discharge exam: gen - NAD, occasional cough HEENT - hoarse voice heart - RRR lungs - hint of occasional wheeze abd - soft NT ND neuro - strength 5/5 x 4 exts ext - no edema Again ENT eval will be arranged for after d/c. Alejandro Broussard MD
== END 2019-08-10 16:11 | disposition home or self-care (01) | DRG 392 ==
LOC: INTOOBSV 17:15 → 3N 18:25 → SUATTDRO 18:25